=== PATIENT | female | born 1950 | race Caucasian/White ===

== ENCOUNTER 2023-01-16 01:38 | Emergency (ER) | payer OTHER ==
[~2023-01-16] VITALS: Ht 157.5 cm; Wt 79.1 kg
[~2023-01-16 01:38] MED LIST: ACET65TA OR; ASPI81TA3 OR; AVEL1TAB2 OR; DUO NEBULIZER; GLUC500T OR; IBUP600T OR; PSEU60TA2 OR; TESS100C OR; VIT D 2000 OR
[2023-01-16] MEDS ORDERED: LISI10TA22 PO (01:51)
[2023-01-16] MEDS ORDERED: METF10004 PO (01:51)
[2023-01-16] MEDS ORDERED: GLIP5TAB20 PO (01:51)
[2023-01-16] MEDS ORDERED: EZET10TA21 PO (01:51)
[2023-01-16 03:49] VITALS: BP 197/89
== END 2023-01-16 04:31 | disposition left against medical advice (07) ==
LOC: M ED 01:38
DX: Z53.21 Procedure and treatment not carried out due to patient leaving prior to being seen by health care provider (principal)